=== PATIENT | male | born 1930 | race Caucasian/White ===

== ENCOUNTER 2017-02-24 16:36 | Emergency (ER) | payer MEDICARE ==
--- NOTE | 2017-02-24 16:50 | ERPHSYRPT ---
- History of Present Illness Time Seen by Provider: 02/24/17 16:42 Source: patient, EMS, old records Exam Limitations: no limitations Physician History: patient is a paraplegic who developed numbness in anterior left chest after being lifted with an assist belt. No pain. No other complaints; no fall. Timing/Duration: today (numbness increased), yesterday (incident occurred yesterday) Severity: moderate Modifying Factors: Improves With: nothing Associated Symptoms: denies symptoms Allergies/Adverse Reactions: No Known Drug Allergies Allergy (Verified 02/24/17 16:49) Home Medications: Aspirin [Aspir-Low] 81 mg DAILY 05/10/16 [History] Hx Influenza Vaccination/Date Given: Yes Hx Pneumococcal Vaccination/Date Given: No - Review of Systems Constitutional: No Symptoms Eyes: No Symptoms Ears, Nose, & Throat: No Symptoms Respiratory: No Cough, No Dyspnea, No Wheezing Cardiac: No Chest Pain, No Palpitations, No Syncope Abdominal/Gastrointestinal: Constipation, No Abdominal Pain, No Nausea, No Vomiting, No Diarrhea Genitourinary Symptoms: Incontinence (old), No Flank Pain Musculoskeletal: Injury (possible due to lifting belt), No Fall Skin: No Symptoms Neurological: Paralysis (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), Parasthesia (new anterior left chest) , No Dizziness, No Headache, No Seizure Psychological: No Symptoms Endocrine: No Symptoms Hematologic/Lymphatic: No Symptoms Immunological/Allergic: No Symptoms - Past Medical History Pertinent Past Medical History: Yes Neurological History: No Pertinent History ENT History: Cataracts Cardiac History: Hypertension Respiratory History: No Pertinent History Endocrine Medical History: No Pertinent History Musculoskeletal History: Arthritis GI Medical History: No Pertinent History History: No Pertinent History Psycho-Social History: No Pertinent History Male Reproductive Disorders: No Pertinent History - Past Surgical History Past Surgical History: Yes Neuro Surgical History: No Pertinent History Cardiac: No Pertinent History Respiratory: No Pertinent History Gastrointestinal: No Pertinent History Genitourinary: No Pertinent History Musculoskeletal: Orthopedic Surgery Male Surgical History: Vasectomy Other Surgical History: HAND-carple tunnel - Social History Smoking Status: Never smoker Exposure to second hand smoke: No Alcohol Use: None Drug Use: none Patient Lives Alone: No Significant Family History: no pertinent family hx - Nursing Vital Signs Nursing Vital Signs: Initial Vital Signs Temperature 99.0 F Temperature Source Oral Pulse Rate [Bilateral Radial] 78 Pulse Rate 74 Blood Pressure [Left Arm] 116/68 Pain Intensity 0 - Physical Exam General Appearance: mild distress, alert, thin Eye Exam: PERRL/EOMI, eyes nml inspection, No photophobia Ears, Nose, Throat Exam: normal ENT inspection, TMs normal, pharynx normal, moist mucous membranes Neck Exam: normal inspection, non-tender, supple, full range of motion, No meningismus, No JVD Respiratory Exam: normal breath sounds, lungs clear, airway intact, other ( numbness left anterior chest wall), No chest tenderness, No respiratory distress Cardiovascular Exam: regular rate/rhythm, normal heart sounds, normal peripheral pulses, capillary refill <2 sec, No murmur Gastrointestinal/Abdomen Exam: soft, normal bowel sounds, No tenderness, No guarding, No rebound, No organomegaly Rectal Exam: deferred Back Exam: normal inspection, decreased range of motion (due to paraplegia), No normal range of motion, No CVA tenderness, No vertebral tenderness Extremity Exam: normal inspection, paralysis (lower extremity), pedal edema ( trace), No normal range of motion, No kalina's sign Neurologic Exam: alert, oriented x 3, cooperative, buttermaker helper II-XII nml as tested, normal mood/affect, sensory deficit (paraplegic; also new numbness left anterior chest), No nml cerebellar function (paraplegic), No nml station & gait Skin Exam: normal color, warm, dry, decubitus (large sacral), No rash SpO2 Interpretation: normal SpO2: 98 Oxygen Delivery: Room Air - Course Nursing assessment & vital signs reviewed: Yes EKG Interpreted by Me: RATE (66), Sinus Rhythm, Left [place] Deviation, NORMAL INTERVALS, NORMAL QRS, NORMAL ST-T, Other (unchanged from 05-10-2016) Rhythm Strip: Rate (66), Normal Sinus Rhythm - Radiology Exams Chest X-ray Interpretation: Interpreted by me, No Pneumonia, No Pneumothorax, Nml Heart Size, No Infiltrates T-Spine X-ray Interpretation: Interpreted by me, No Fracture, Other (DJD with spurring) Ordered Tests: Active Orders 24 hr Category Date Time Status Soccer Coach STAT Care 02/24/17 16:42 Active EKG-ER Only STAT Care 02/24/17 16:42 Active IV Insertion STAT Care 02/24/17 16:42 Active CHEST 1 VIEW (PORTABLE) Stat Exams 02/24/17 16:43 Taken THORACIC SPINE (AP,LAT,SWIMM) Stat Exams 02/24/17 16:44 Taken CBC W DIFF Stat Lab 02/24/17 16:45 Completed CMP Stat Lab 02/24/17 16:45 Completed Manual Differential NC Stat Lab 02/24/17 16:45 Completed TROPONIN Q3H Lab 02/24/17 16:45 Completed TROPONIN Q3H Lab 02/24/17 19:45 Ordered TROPONIN Q3H Lab 02/24/17 22:45 Ordered TROPONIN Q3H Lab 02/25/17 01:45 Ordered TROPONIN Q3H Lab 02/25/17 04:45 Ordered Lab/Rad Data: Laboratory Result Diagrams 02/24/17 16:45 02/24/17 16:45 Laboratory Results 02/24/17 02/24/17 02/24/17 Range/Units 16:45 16:45 16:45 WBC 8.2 (4.0-10.5) K/mm3 RBC 4.00 L (4.1-5.6) M/mm3 Hgb 11.2 L (12.5-18.0) gm/dl Hct 36.6 L (42-50) % MCV 91.5 (78-100) fl MCH 28.0 (26-32) pg MCHC 30.6 L (32-36) g/dl RDW 15.5 H (11.5-14.0) % Plt Count 243 (150-450) K/mm3 MPV 8.5 (6-9.5) fl Sodium 143 (136-145) mEq/L Potassium 4.1 (3.5-5.1) mEq/L Chloride 109 H (98-107) mEq/L Carbon Dioxide 24.8 (21-32) mEq/L Anion Gap 13.4 (5-15) MEQ/L BUN 18 (9-20) mg/dL Creatinine 0.93 (0.55-1.30) mg/dl Estimated GFR > 60 ML/MIN Glucose 100 (70-110) MG/DL Calcium 9.3 (8.5-10.1) mg/dL Total Bilirubin 0.60 (0.2-1.0) mg/dL AST 28 (15-37) U/L ALT 38 (12-78) U/L Alkaline Phosphatase 145 H (46-116) U/L Troponin I < 0.017 (0.000-0.056) ng/ml Serum Total Protein 6.0 L (6.4-8.2) gm/dL Albumin 2.6 L (3.4-5.0) g/dL reviewed - Progress Progress: improved, re-examined (after xr) Progress Note: 02/24/17 17:50 daughter at bedside; discussed findings and treatment plan; Dr Prieto consulted and will follow up and return patient to [place]; Discussed with Dr.: Brendon (consulted and will follow as an outpatient) Will see patient in: other Counseled pt/family regarding: lab results, diagnosis, need for follow-up, rad results - Departure Time of Disposition: 17:52 Departure Disposition: Home Clinical Impression: Neuritis, Paraplegia, Decubitus skin ulcer Condition: Stable Critical Care Time: No Referrals: EJ PRIETO MD [Primary Care Provider] - Additional Instructions: return to [place] with orders as before; follow up Dr Prieto for further care Follow-up with family doctor as directed. Call for appointment. Return if any problems. If you smoke please stop. Call or follow up with your family doctor for assistance if you need it to stop. Please wear your seatbelt when driving. Have a nice day. Thank you for allowing us to participate in your care today. :o) Dr Alberto Chaney
[2017-02-24 17:11] LABS: Mean Cell Volume 91.5 fl (78-100); Mean Platelet Volume 8.5 fl (6-9.5); Platelet Count 243 K/mm3 (150-450); Red Cell Distribution Width 15.5 % (11.5-14.0); White Blood Count 8.2 K/mm3 (4.0-10.5)
[2017-02-24 17:37] LABS: ALBUMIN 2.6 g/dL (3.4-5.0); ALKALINE PHOSPHATASE 145 U/L (46-116); ANION GAP 13.4 MEQ/L (5-15); BLOOD UREA NITROGEN 18 mg/dL (9-20); CHLORIDE 109 mEq/L (98-107); Carbon Dioxide 24.8 mEq/L (21-32); Glucose 100 MG/DL (70-110); Potassium 4.1 mEq/L (3.5-5.1); SGOT/AST 28 U/L (15-37); SGPT/ALT 38 U/L (12-78); SODIUM 143 mEq/L (136-145)
[2017-02-24 17:58] VITALS: BP 109/40; PULSE 65; O2SAT 99
[2017-02-24 19:01] LABS: BAND 1 % (0.0-2.0); Eosinophil 3 % (0.00-3.0); Platelet Estimate NORMAL (NORMAL); Total Cells Counted 100
[2017-02-24 19:02] LABS: ANISOCYTOSIS 1+; Poikilocytosis 1+
--- NOTE | 2017-02-25 08:38 | XRAY ---
Indication: Chest discomfort. Comparison: May 19, 2016. Portable chest is clear today. Heart and mediastinal structures within normal limits for AP portable technique. New right arm PICC line with the tip projecting over the SVC. Bony thorax intact again with mild osteopenia and degenerative changes. Impression: Nonacute chest with chronic features.
--- NOTE | 2017-02-25 08:40 | XRAY ---
Indication: Chest discomfort. Comparison: None Frontal/lateral thoracic spine demonstrates 12 typical rib-bearing thoracic segments in normal alignment with age-related osteopenia, multilevel flowing osteophytes, and partially visualized right arm PICC line. No other bony, articular, or soft tissue abnormalities.
== END 2017-02-24 18:39 | disposition home or self-care (01) ==
LOC: ED 16:36
DX: M79.2 Neuralgia and neuritis, unspecified (principal); G82.20 Paraplegia, unspecified; L89.159 Pressure ulcer of sacral region, unspecified stage
CPT/HCPCS: 36415; 71010; 72072; 80053; 84484; 85025; 93005; 93041; 99284